=== PATIENT | male | born 1945 | race Caucasian/White ===

== ENCOUNTER 2020-12-24 12:50 | Emergency (ER) | payer MEDICARE, SELFPAY ==
[2020-12-24 12:54] VITALS: BP 140/104; PULSE 107; RESP 20; TEMP 36.3; O2SAT 97; BMI 24.1
--- NOTE | 2020-12-24 13:26 | ED_ITS ---
HPI - Skin/Abscess/Foreign Bdy General Chief complaint: Skin/Abscess/Foreign Body Stated complaint: rash Time Seen by Provider: 12/24/20 13:12 Source: patient Mode of arrival: ambulatory Limitations: no limitations History of Present Illness HPI narrative: treated x 3 after tele health with permethrin though and him share a bed and she has no symptoms, the patient may have had new laundry detergent complaint: rash Onset (ago): week(s) (3) Location: generalized Severity: moderate Quality: pruritic Pain Consistency: constant Relieving factors: none Exacerbating factors: none Context: none Associated symptoms: denies other symptoms Treatments prior to arrival: other (permethrin no relief) Related Data Home Medications Medication Instructions Recorded Confirmed atorvastatin 1 tab PO DAILY 12/24/20 12/24/20 finasteride 1 tab PO DAILY 12/24/20 12/24/20 permethrin appl TOPICAL 2XW 12/24/20 Previous Rx's Medication Instructions Recorded prednisone 10 mg PO PER PKG DIR #48 ea 12/24/20 Allergies Allergy/AdvReac Type Severity Reaction Status Date / Time carrot Allergy Swelling Verified 12/24/20 13:00 Penicillins Allergy Unknown Verified 12/24/20 13:00 Review of Systems Review of Systems: Constitutional : No Weight loss, No Fever, No Chills, No Fatigue, No Malaise ENT/Mouth : No sore throat, No Rhinorrhea Eyes: No Eye Pain, No Swelling, No Redness Cardiovascular : No Chest Pain, No SOB, No Dyspnea on Exertion Respiratory : No Cough, No Sputum, No Wheezing Gastrointestinal : No Nausea, No Vomiting, No Diarrhea, No Constipation, No abdominal Pain, No Hematochezia, No Melena Genitourinary : No Dysuria, No Urinary Frequency, No Hematuria, Musculoskeletal : No joint pain, No Myalgias, No Joint Swelling Skin : No Skin Lesions, pos rash Neuro : No Weakness, No Numbness, No Dizziness, No Headache All other systems reviewed and are negative [facility] Past Medical History Attestation statement: The following information was validated with the patient. Medical History Hypercholesteremia Social History Social History (Updated 12/24/20 @ 14:42 by Narda Mayberry DO) Smoking Status: Never smoker Advance Directives: No Advance Directives Information Provided: No Physical Exam Vital Signs: Vital Signs: Last Vital Signs Temp 97.4 F 12/24/20 12:54 Pulse 107 H 12/24/20 12:54 Resp 20 12/24/20 12:54 BP 140/104 H 12/24/20 12:54 Pulse Ox 97 12/24/20 12:54 Body Mass Index 24.1 Appearance: Alert. Oriented X3. No acute distress. Eyes: Pupils equal, round and reactive to light. ENT: Pharynx normal. Neck: Normal inspection. Neck supple. CVS: Normal heart rate and rhythm. Pulses normal. Respiratory: No respiratory distress. Breath sounds normal. Abdomen: Soft and nontender. Skin: Skin warm and dry. Normal skin color. Normal skin turgor. Extremities: No lower extremity edema. No calf ttp diffuse red excoriated lesions no vesicles no signs of infection, seems itching in nature Neuro: Oriented X 3. No motor deficit. No sensory deficit. MDM - Skin/Abscess/Foreign Bdy MDM Narrative Medical decision making narrative: 75 yo male with no DM here with itching rash that appears like dermatitis in nature possible exposure to detergent, basic labs and infl markers ordered, will start on prednisone taper Lab Data Result diagrams: 12/24/20 14:01 12/24/20 14:00 Labs: Lab Results 12/24/20 12/24/20 Range/Units 14:00 14:01 WBC 9.5 (4.8-10.8) X10*3/uL RBC 5.28 (4.60-5.80) X10*6/uL Hgb 15.3 (14.0-18.0) g/dl Hct 46.6 (42-52) % MCV 88.3 (80-98) fL MCH 29.0 (27.0-33.0) pg MCHC 32.8 (31.0-36.0) g/dl RDW 13.2 (11.0-16.0) % Plt Count 230 (160-400) X10*3/uL MPV 10.5 (9.4-12.4) fL Immature Gran % (Auto) 0.3 (0.0-0.4) % Neut % (Auto) 75.9 H (45-73) % Lymph % (Auto) 10.9 L (20-40) % Stephens % (Auto) 6.7 (2-11) % Eos % (Auto) 5.6 H (0-4) % Baso % (Auto) 0.6 (0-2) % Lymph # (Auto) 1.0 L (1.2-4.9) X10*3/uL Stephens # (Auto) 0.6 (0.1-1.2) X10*3/uL Eos # (Auto) 0.5 H (0.0-0.4) X10*3/uL Baso # (Auto) 0.1 (0.0-0.2) X10*3/uL Abs Immat Gran (auto) 0.03 (0.00-0.03) X10*3/uL Absolute Neuts (auto) 7.2 (2.0-8.3) X10*3/uL Absolute Nucleated RBC 0.000 (0.0-0.012) X10*3/uL Nucleated RBC % (auto) 0.0 (0.0-0.2) /100WBC Sodium 142 (135-145) mmol/L Potassium 4.6 (3.3-5.1) mmol/l Chloride 110 H (96-108) mmol/L Carbon Dioxide 23 (22-29) mmol/L Anion Gap 14 (12-20) BUN 17 H (9-16) mg/dL Creatinine 1.31 (0.5-1.4) mg/dL Estim Creat Clear Calc 54.3 Estimated GFR 53 Random Glucose 107 (60-115) mg/dL Calcium 8.7 (8.4-10.2) mg/dL Total Bilirubin 0.8 (0.0-1.0) mg/dL Direct Bilirubin 0.3 (0.0-0.5) mg/dL AST 15 (5-37) U/L ALT 18 (0-40) U/L Alkaline Phosphatase 69 (39-117) U/L C-Reactive Protein 0.46 (< or = 0.50) mg/dL Total Protein 6.6 (6.5-8.0) g/dL Albumin 3.7 (3.5-5.0) g/dL Discharge Plan Discharge Clinical Impression: Contact dermatitis Qualifiers: Contact dermatitis type: unspecified Contact dermatitis trigger: unspecified trigger Qualified Code(s): L25.9 - Unspecified contact dermatitis, unspecified cause Patient Disposition: Home, Self-Care Instructions: Dermatitis (ED) Additional Instructions: return to ED for any worsening symptoms or concerns IF THIS COINCIDES WITH YOUR DETERGENT PLEASE STOP USING Prescriptions: New prednisone 10 mg tablets,dose pack 10 mg PO PER PKG DIR Qty: 48 RF: 0 No Action atorvastatin 20 mg tablet 1 tab PO DAILY RF: 0 permethrin 5 % cream topical 2XW RF: 0 finasteride 5 mg tablet 1 tab PO DAILY RF: 0
[2020-12-24 14:04] LABS: MANUAL DIFF FLAG NO
[2020-12-24 14:09] LABS: Basophils Absolute Auto 0.1 X10*3/uL (0.0-0.2); Basophils Percent Auto 0.6 % (0-2); Eosinophils Absolute Auto 0.5 X10*3/uL (0.0-0.4); Eosinophils Percent Auto 5.6 % (0-4); Hematocrit 46.6 % (42-52); Hemoglobin 15.3 g/dl (14.0-18.0); Imm Gran Abs Auto 0.03 X10*3/uL (0.00-0.03); Imm Gran Pct Auto 0.3 % (0.0-0.4); Lymphocytes Percent Auto 10.9 % (20-40); Mean Corpuscular HGB Conc 32.8 g/dl (31.0-36.0); Mean Corpuscular Volume 88.3 fL (80-98); Mean Platelet Volume 10.5 fL (9.4-12.4); Monocytes Absolute Auto 0.6 X10*3/uL (0.1-1.2); Monocytes Percent Auto 6.7 % (2-11); Neutrophils Absolute Auto 7.2 X10*3/uL (2.0-8.3); Neutrophils Percent Auto 75.9 % (45-73); Platelet Count 230 X10*3/uL (160-400); Red Blood Count 5.28 X10*6/uL (4.60-5.80); Red Cell Distribution Width 13.2 % (11.0-16.0); White Blood Count 9.5 X10*3/uL (4.8-10.8)
[2020-12-24 14:32] LABS: Alanine Aminotransferase 18 U/L (0-40); Albumin Level 3.7 g/dL (3.5-5.0); Alkaline Phosphatase 69 U/L (39-117); Anion Gap 14 (12-20); Aspartate Amino Transferase 15 U/L (5-37); Bilirubin Direct 0.3 mg/dL (0.0-0.5); Bilirubin Total 0.8 mg/dL (0.0-1.0); Blood Urea Nitrogen 17 mg/dL (9-16); C Reactive Protein 0.46 mg/dL (< or = 0.50); Calcium 8.7 mg/dL (8.4-10.2); Carbon Dioxide 23 mmol/L (22-29); Chloride 110 mmol/L (96-108); Creatinine Clr Calc Pharmacy 54.3; Estimated Glomerular Filt Rate 53; Glucose Random 107 mg/dL (60-115); Potassium 4.6 mmol/l (3.3-5.1); Sodium 142 mmol/L (135-145); Total Protein 6.6 g/dL (6.5-8.0)
--- NOTE | 2020-12-24 14:49 | PC.NURSE ---
SITTING ON STRETCHER, AWAITING LAB RESULTS. NO C/O
[2020-12-24 15:17] LABS: Erythrocyte Sedimentation Rate 6 MM/HR (0-15)
== END 2020-12-24 15:03 | disposition home or self-care (01) ==
PROVIDERS: Emergency Provider Emergency Medicine; PCP Internal Medicine
DX: L25.9 Unspecified contact dermatitis, unspecified cause (principal)
CPT/HCPCS: 36415; 80048; 80076; 85025; 85652; 86140; 99283

== ENCOUNTER 2021-06-22 10:18 | Outpatient (REF) | payer MEDICARE, SELFPAY ==
[2021-06-22 10:21] LABS: MANUAL DIFF FLAG NO
[2021-06-22 10:45] LABS: Basophils Absolute Auto 0.1 X10*3/uL (0.0-0.2); Basophils Percent Auto 0.8 % (0-2); Eosinophils Absolute Auto 0.5 X10*3/uL (0.0-0.4); Eosinophils Percent Auto 7.6 % (0-4); Hematocrit 46.9 % (42-52); Hemoglobin 15.2 g/dl (14.0-18.0); Imm Gran Abs Auto 0.01 X10*3/uL (0.00-0.03); Imm Gran Pct Auto 0.2 % (0.0-0.4); Lymphocytes Absolute Auto 1.9 X10*3/uL (1.2-4.9); Lymphocytes Percent Auto 29.9 % (20-40); Mean Corpuscular HGB Conc 32.4 g/dl (31.0-36.0); Mean Corpuscular Hemoglobin 28.9 pg (27.0-33.0); Mean Corpuscular Volume 89.2 fL (80-98); Mean Platelet Volume 11.4 fL (9.4-12.4); Monocytes Absolute Auto 0.6 X10*3/uL (0.1-1.2); Monocytes Percent Auto 8.9 % (2-11); Neutrophils Absolute Auto 3.3 X10*3/uL (2.0-8.3); Neutrophils Percent Auto 52.6 % (45-73); Platelet Count 200 X10*3/uL (160-400); Red Blood Count 5.26 X10*6/uL (4.60-5.80); Red Cell Distribution Width 13.5 % (11.0-16.0); White Blood Count 6.3 X10*3/uL (4.8-10.8)
[2021-06-22 11:08] LABS: Alanine Aminotransferase 17 U/L (0-40); Albumin Level 4.1 g/dL (3.5-5.0); Alkaline Phosphatase 51 U/L (39-117); Anion Gap 11 (12-20); Aspartate Amino Transferase 18 U/L (5-37); Bilirubin Total 0.7 mg/dL (0.0-1.0); Blood Urea Nitrogen 18 mg/dL (9-16); Calcium 9.3 mg/dL (8.4-10.2); Carbon Dioxide 26 mmol/L (22-29); Chloride 109 mmol/L (96-108); Cholesterol 176 mg/dL; Estimated Glomerular Filt Rate 53; Glucose Fasting 99 mg/dL (60-99); HDL Cholesterol 56 mg/dL; LDL Cholesterol Calculated 105 mg/dl; Sodium 141 mmol/L (135-145); Triglycerides 77 mg/dL
[2021-06-22 11:22] LABS: Reflex LDLD? No
== END 2021-06-22 10:19 | disposition home or self-care (01) ==
LOC: HO.LNP 10:18
PROVIDERS: Visit Provider Internal Medicine
DX: Z00.00 Encounter for general adult medical examination without abnormal findings (principal); Z12.5 Encounter for screening for malignant neoplasm of prostate; E78.00 Pure hypercholesterolemia, unspecified; N40.0 Benign prostatic hyperplasia without lower urinary tract symptoms
CPT/HCPCS: 80053; 80061; 84153; 85025

== ENCOUNTER 2021-06-29 15:37 | Outpatient (REF) | payer MEDICARE, SELFPAY ==
[2021-06-29 15:56] LABS: Glucose Urine UA NEG (NEG); Leukocyte Esterase Urine NEG (NEG); Nitrite Urine NEG (NEG); Specific Gravity - Urine 1.025 (1.005-1.025); Urine Blood NEG (NEG); Urine Ketones NEG (NEG); Urine Protein NEG (NEG-TRACE)
[2021-06-29 15:57] LABS: Appearance Urine CLEAR; Color Urine YELLOW
== END 2021-06-29 15:38 | disposition home or self-care (01) ==
LOC: HO.LNP 15:37
PROVIDERS: Visit Provider Internal Medicine
DX: Z00.00 Encounter for general adult medical examination without abnormal findings (principal)
CPT/HCPCS: 81003

== ENCOUNTER 2021-12-30 10:39 | Outpatient (REF) | payer MEDICARE, SELFPAY ==
[2021-12-30 11:16] LABS: Alanine Aminotransferase 15 U/L (0-40); Albumin Level 3.9 g/dL (3.5-5.0); Alkaline Phosphatase 49 U/L (39-117); Aspartate Amino Transferase 18 U/L (5-37); Bilirubin Direct 0.3 mg/dL (0.0-0.5); Bilirubin Total 0.8 mg/dL (0.0-1.0); Cholesterol 168 mg/dL; HDL Cholesterol 54 mg/dL; LDL Cholesterol Calculated 101 mg/dl; Total Protein 6.8 g/dL (6.5-8.0); Triglycerides 65 mg/dL
[2021-12-30 12:08] LABS: Reflex LDLD? No
== END 2021-12-30 10:40 | disposition home or self-care (01) ==
LOC: HO.LNP 10:39
PROVIDERS: PCP Internal Medicine; Visit Provider Internal Medicine
DX: E78.00 Pure hypercholesterolemia, unspecified (principal)
CPT/HCPCS: 80061; 80076

== ENCOUNTER 2022-07-01 11:06 | Outpatient (REF) | payer MEDICARE, SELFPAY ==
[2022-07-01 11:09] LABS: MANUAL DIFF FLAG NO
[2022-07-01 11:28] LABS: Basophils Percent Auto 0.8 % (0-2); Eosinophils Absolute Auto 0.3 X10*3/uL (0.0-0.4); Eosinophils Percent Auto 5.2 % (0-4); Hematocrit 44.6 % (42.0-52.0); Hemoglobin 14.7 g/dl (14.0-18.0); Imm Gran Abs Auto 0.01 X10*3/uL (0.00-0.03); Imm Gran Pct Auto 0.2 % (0.0-0.4); Lymphocytes Percent Auto 38.3 % (20-40); Mean Platelet Volume 10.8 fL (9.4-12.4); Monocytes Absolute Auto 0.6 X10*3/uL (0.1-1.2); Monocytes Percent Auto 10.7 % (2-11); Neutrophils Absolute Auto 2.3 x10*3/uL (2.0-8.3); Neutrophils Percent Auto 44.8 % (45-73); Platelet Count 188 X10*3/uL (160-400); Red Blood Count 5.07 X10*6/uL (4.60-5.80); Red Cell Distribution Width 13.8 % (11.0-16.0); White Blood Count 5.2 X10*3/uL (4.8-10.8)
[2022-07-01 11:36] LABS: Appearance Urine CLEAR; Color Urine YELLOW; Glucose Urine UA NEG (NEG); Leukocyte Esterase Urine NEG (NEG); Nitrite Urine NEG (NEG); PH 6.5 (5.0-8.0); Specific Gravity - Urine 1.015 (1.005-1.025); Urine Blood NEG (NEG); Urine Ketones NEG (NEG); Urine Protein NEG (NEG-TRACE)
[2022-07-01 11:40] LABS: Alanine Aminotransferase 14 U/L (0-40); Alkaline Phosphatase 48 U/L (39-117); Anion Gap 13 (12-20); Aspartate Amino Transferase 16 U/L (5-37); Bilirubin Total 0.6 mg/dL (0.0-1.0); Blood Urea Nitrogen 17 mg/dL (9-16); Calcium 8.5 mg/dL (8.4-10.2); Carbon Dioxide 22 mmol/L (22-29); Chloride 110 mmol/L (96-108); Cholesterol 166 mg/dL; Estimated Glomerular Filt Rate 55; Glucose Fasting 99 mg/dL (60-99); HDL Cholesterol 56 mg/dL; LDL Cholesterol Calculated 98 mg/dl; Potassium 4.6 mmol/L (3.3-5.1); Sodium 140 mmol/L (135-145); Total Protein 6.8 g/dL (6.5-8.0); Triglycerides 60 mg/dL
[2022-07-01 12:01] LABS: PSA,Total (Free>4and<10) 2.01 ng/mL (0.00-4.00)
[2022-07-01 12:07] LABS: RBC Urine 0-2 /HPF (0); WBC Urine 0-2 /HPF (0-4)
== END 2022-07-01 11:07 | disposition home or self-care (01) ==
LOC: HO.LNP 11:06
PROVIDERS: Visit Provider Internal Medicine
DX: Z00.00 Encounter for general adult medical examination without abnormal findings (principal); Z12.5 Encounter for screening for malignant neoplasm of prostate; E78.00 Pure hypercholesterolemia, unspecified; N40.0 Benign prostatic hyperplasia without lower urinary tract symptoms
CPT/HCPCS: 80053; 80061; 81001; 84153; 85025

== ENCOUNTER → 2022-09-19 09:18 | Outpatient (REF) | payer MEDICARE, SELFPAY ==
--- NOTE | 2022-09-19 09:27 | CA_ITS ---
Acquisition Time: 2022-09-19 10:22:12 Total Exercise Time: 00:06:20 Test Indications: CARDIAC MURMUR Medications: ATORVASTATIN FINSASTERIDE Protocol: ALEJANDRA Max HR: 139 BPM 95% of Pred: 145 BPM Max BP: 172/090 mmHG Max Work Load: 7.5 METS Exercise stress test with exercise 6 min 20 sec of Alejandra protocol, achieving 95% MPHR, without anginal symptoms, without arrythmia, with normotensive response to exercise, without EKG changes meeting criteria for ischemia. Test reviewed with Dr Mendez. Referred By: Jenaro Brown Overread By: GAB SEBASTIAN
--- NOTE | 2022-09-19 09:30 | CA_ITS ---
Transthoracic Echocardiogram Patient (Last, First, Middle): Leo Frank W Gender: Male Date of : 1945 Age: 76 Procedure Date: 09/19/2022 Procedure Type: Transthoracic Echocardiogram Location: OP Height: 180.34 cm Weight: 81.65 kg BSA: 2.02 m2 Heart Rate: bpm BP: 130 / 80 mmHg [employer] Back Tender: CRUZ Referring MD: Jenaro Brown MD Systems Support Officer: Dejuan Mendez MD Symptoms: HEART MURMUR Study Quality: Adequate ECG Rhythm: Sinus Conclusions: - 1. Normal LV systolic function with impaired relaxation filling pattern 2. Aortic valve not well visualized with [id number] aortic regurgitation 3. Moderately dilated ascending aorta at 4.5 cm 4. Normal RV systolic pressure 5. No gross pericardial effusion Findings Left Ventricle Normal left ventricular size, thickness, and systolic function. The visually estimated ejection fraction is between 60-65%. Spectral Doppler is indicative of an impaired relaxation filling pattern. E/E prime ratio is between 8 and 15 consistent with indeterminate filling pressures. Right Ventricle Normal right ventricular cavity size and systolic function. Atria The left atrium is normal in size. There is no evidence of interatrial shunt. The right atrium is normal in size. Aortic Valve The aortic valve was not well visualized. There is moderate calcification of the aortic valve. There is no aortic valve stenosis. There is mild to moderate aortic valve regurgitation. Mitral Valve There is mild anterior and posterior mitral leaflet thickening. There is mild mitral valve regurgitation. There is no mitral valve stenosis. Pulmonic Valve The pulmonic valve was not well visualized. Tricuspid Valve Likely normal tricuspid valve structure and function. There is trace tricuspid valve regurgitation. The right ventricular systolic pressure is normal. The right ventricular systolic pressure is 24 mmHg. Normal right atrial pressure. There is no evidence of pulmonary hypertension. Great Vessels The pulmonary artery was not well visualized. There is moderate dilatation of the ascending aorta measuring 4.50 cm. Venous The inferior vena cava is normal in size and collapses greater than 50% with inspiration. Pericardium/Pleural There is no evidence of pericardial effusion. Prior Study Comparison No prior study available for comparison. Measurements 2D Linear Measurements IVSd: 1.10 0.6-0.9/0.6-1.0 cm LVIDd: 5.19 3.9-5.3/4.2-5.9 cm LVIDd Index: 2.57 2.4-3.2/2.2-3.1 cm/m2 LVIDs: 3.22 2.0-3.6 cm LVPWd: 0.93 0.7-1.1 cm LA Diam: 2.90 2.7-3.8/3.0-4.0 cm LAIDs Index: 1.44 1.5-2.3 cm/m2 LV Mass: 246.68 67-162/88-224 g LV Mass Index: 122.12 43-95/49-115 g/m2 LVOT Diam: 2.10 3.0+(-)1.3 cm 2D Systolic Function EF 4C: 59.80 >55% EF 2C: 60.20 >55% EF BiP: 60.00 >55% Mitral Valve MV Pk E: 0.85 MV PK A: 0.85 MV Decel Time: 278.00 E/A: 1.00 E'Lateral: 7.63 E'Medial: 5.57 E/E' Med: 15.30 E/E' Lat: 11.20 PHT: 81.00 MVA PHT: 2.72 Decel [place]: 3.07 Aortic Valve AoV Pk Blu: 1.51 AoV Mn Blu: 1.09 AoV VTI: 0.41 AoV Pk Grad: 9.00 Aov Mn Grad: 5.00 APURVA Cont.VTI: 1.99 AI Pk Blu: 4.47 AI [place]: 1.86 LVOT LVOT Pk Blu: 1.00 LVOT Mn Blu: 0.68 LVOT VTI: 0.24 LVOT Pk Grad: 4.00 LVOT Mn Grad: 2.00 LVOT Diam: 2.10 LVOT Area: 3.46 Diastolic Function MV Pk E: 0.85 MV Pk A: 0.85 E/A: 1.00 E'Medial: 5.57 E/E' Med: 15.30 E' Laterial: 7.63 E/E' Lat: 11.20 Right Ventricle TAPSE (mm): 32.10 TVS' Blu: 13.70 Tricuspid Valve TR Pk Blu: 2.29 TR Pk Grad: 21.00 RA Press: 3.00 RVSP: 24.00 Great Vessels Aorta Sinus of Valsalva: 3.95 2.0-3.[address] Ridge: 3.40 1.7-3.4 cm Ao Asc: 4.50 2.1-3.4 cm Updated in Other Vendor System with Status of Final Dejuan Mendez MD electronically signed on 09/20/2022 2:37:42 PM with status of Final
== END ==
LOC: HO.CARD 09:18
PROVIDERS: PCP Internal Medicine; Visit Provider Internal Medicine
DX: R01.1 Cardiac murmur, unspecified (principal)
CPT/HCPCS: 93017; 93306

== ENCOUNTER 2023-08-08 10:24 | Outpatient (REF) | payer MEDICARE, SELFPAY ==
[2023-08-08 10:27] LABS: MANUAL DIFF FLAG NO
[2023-08-08 10:34] LABS: Basophils Absolute Auto 0.1 X10*3/uL (0.0-0.2); Eosinophils Absolute Auto 0.3 X10*3/uL (0.0-0.4); Eosinophils Percent Auto 6.3 % (0-4); Hematocrit 44.7 % (42.0-52.0); Imm Gran Abs Auto 0.01 X10*3/uL (0.00-0.03); Imm Gran Pct Auto 0.2 % (0.0-0.4); Lymphocytes Absolute Auto 1.7 X10*3/uL (1.2-4.9); Lymphocytes Percent Auto 32.4 % (20-40); Mean Corpuscular HGB Conc 33.6 g/dl (31.0-36.0); Mean Corpuscular Hemoglobin 29.6 pg (27.0-33.0); Mean Corpuscular Volume 88.3 fL (80.0-98.0); Mean Platelet Volume 11.3 fL (9.4-12.4); Monocytes Absolute Auto 0.4 X10*3/uL (0.1-1.2); Monocytes Percent Auto 8.4 % (2-11); Neutrophils Absolute Auto 2.7 x10*3/uL (2.0-8.3); Neutrophils Percent Auto 51.7 % (45-73); Platelet Count 197 X10*3/uL (160-400); Red Blood Count 5.06 X10*6/uL (4.60-5.80); Red Cell Distribution Width 13.3 % (11.0-16.0); White Blood Count 5.2 X10*3/uL (4.8-10.8)
[2023-08-08 10:36] LABS: Appearance Urine Clear; Color Urine Yellow; Glucose Urine UA Negative (Negative); Leukocyte Esterase Urine Negative (Negative); Nitrite Urine Negative (Negative); Specific Gravity - Urine 1.015 (1.005-1.025); Urine Blood Negative (Negative); Urine Ketones Negative (Negative); Urine Protein Negative (Neg-Trace)
[2023-08-08 10:39] LABS: Bacteria Urine None Seen (None Seen); Hyaline Casts Urine 0-2 /LPF (0-2); RBC Urine 0-2 /HPF (0-2); Squamous Epithelial Cell Urine 0-2 /HPF (0-2); WBC Urine 0-5 /HPF (0-5)
[2023-08-08 10:53] LABS: Alanine Aminotransferase 15 U/L (0-40); Alkaline Phosphatase 52 U/L (39-117); Anion Gap 12 (12-20); Aspartate Amino Transferase 17 U/L (5-37); Bilirubin Total 0.9 mg/dL (0.0-1.0); Blood Urea Nitrogen 14 mg/dL (9-16); Calcium 9.1 mg/dL (8.4-10.2); Carbon Dioxide 21 mmol/L (22-29); Chloride 111 mmol/L (96-108); Cholesterol 144 mg/dL (<200); Estimated Glomerular Filt Rate > 60; Glucose Fasting 99 mg/dL (60-99); HDL Cholesterol 53 mg/dL (>40); LDL Cholesterol Calculated 75 mg/dL (<100); Potassium 4.3 mmol/L (3.3-5.1); Sodium 140 mmol/L (135-145); Triglycerides 80 mg/dL (<150)
[2023-08-08 11:09] LABS: PSA,Total (Free>4and<10) 2.02 ng/mL (0.00-4.00)
== END 2023-08-08 10:25 | disposition home or self-care (01) ==
LOC: HO.LNP 10:24
PROVIDERS: Visit Provider Internal Medicine
DX: Z00.00 Encounter for general adult medical examination without abnormal findings (principal); Z12.5 Encounter for screening for malignant neoplasm of prostate; E78.00 Pure hypercholesterolemia, unspecified; N40.0 Benign prostatic hyperplasia without lower urinary tract symptoms
CPT/HCPCS: 80053; 80061; 81001; 84153; 85025

== ENCOUNTER 2024-02-05 10:54 | Outpatient (REF) | payer MEDICARE, SELFPAY ==
[2024-02-05 13:07] LABS: Alanine Aminotransferase 17 U/L (0-40); Alkaline Phosphatase 55 U/L (39-117); Aspartate Amino Transferase 19 U/L (5-37); Bilirubin Direct 0.2 mg/dL (0.0-0.5); Bilirubin Total 0.5 mg/dL (0.0-1.0); Cholesterol 177 mg/dL (<200); HDL Cholesterol 61 mg/dL (>40); LDL Cholesterol Calculated 104 mg/dL (<100); Total Protein 7.1 g/dL (6.5-8.0); Triglycerides 60 mg/dL (<150)
== END 2024-02-05 10:55 | disposition home or self-care (01) ==
LOC: HO.LNP 10:54
PROVIDERS: Visit Provider Internal Medicine
DX: E78.00 Pure hypercholesterolemia, unspecified (principal)
CPT/HCPCS: 80061; 80076

== ENCOUNTER 2024-08-09 10:46 | Outpatient (REF) | payer MEDICARE, SELFPAY ==
[2024-08-09 10:49] LABS: MANUAL DIFF FLAG NO
[2024-08-09 11:13] LABS: Appearance Urine Clear; Color Urine Yellow; Glucose Urine UA Negative (Negative); Leukocyte Esterase Urine Negative (Negative); Nitrite Urine Negative (Negative); Specific Gravity - Urine 1.025 (1.005-1.025); Urine Blood Negative (Negative); Urine Ketones Trace mg/dL (Negative); Urine Protein Trace mg/dL (Neg-Trace)
[2024-08-09 11:21] LABS: Bacteria Urine None Seen (None Seen); Hyaline Casts Urine 0-2 /LPF (0-2); RBC Urine 0-2 /HPF (0-2); Squamous Epithelial Cell Urine 0-2 /HPF (0-2); WBC Urine 0-5 /HPF (0-5)
[2024-08-09 11:34] LABS: Basophils Absolute Auto 0.1 X10*3/uL (0.0-0.2); Eosinophils Absolute Auto 0.3 X10*3/uL (0.0-0.4); Eosinophils Percent Auto 5.4 % (0-4); Hematocrit 45.1 % (42.0-52.0); Hemoglobin 14.9 g/dl (14.0-18.0); Imm Gran Abs Auto 0.01 X10*3/uL (0.00-0.03); Imm Gran Pct Auto 0.2 % (0.0-0.4); Lymphocytes Absolute Auto 2.2 X10*3/uL (1.2-4.9); Lymphocytes Percent Auto 37.5 % (20-40); Mean Corpuscular Hemoglobin 29.9 pg (27.0-33.0); Mean Corpuscular Volume 90.4 fL (80.0-98.0); Monocytes Absolute Auto 0.5 X10*3/uL (0.1-1.2); Monocytes Percent Auto 9.3 % (2-11); Neutrophils Absolute Auto 2.7 x10*3/uL (2.0-8.3); Neutrophils Percent Auto 46.6 % (45-73); Platelet Count 196 X10*3/uL (160-400); Red Blood Count 4.99 X10*6/uL (4.60-5.80); Red Cell Distribution Width 13.9 % (11.0-16.0); White Blood Count 5.8 X10*3/uL (4.8-10.8)
[2024-08-09 11:48] LABS: Alanine Aminotransferase 17 U/L (0-40); Albumin Level 4.1 g/dL (3.5-5.0); Alkaline Phosphatase 52 U/L (39-117); Anion Gap 12 (12-20); Aspartate Amino Transferase 20 U/L (5-37); Bilirubin Total 0.8 mg/dL (0.0-1.0); Blood Urea Nitrogen 20 mg/dL (9-16); Calcium 9.3 mg/dL (8.4-10.2); Carbon Dioxide 23 mmol/L (22-29); Chloride 110 mmol/L (96-108); Cholesterol 181 mg/dL (<200); Estimated Glomerular Filt Rate 46; Glucose Fasting 94 mg/dL (60-99); HDL Cholesterol 66 mg/dL (>40); LDL Cholesterol Calculated 100 mg/dL (<100); Potassium 4.3 mmol/L (3.3-5.1); Sodium 141 mmol/L (135-145); Total Protein 7.2 g/dL (6.5-8.0); Triglycerides 76 mg/dL (<150)
[2024-08-09 11:51] LABS: PSA,Total (Free>4and<10) 3.17 ng/mL (0.00-4.00)
== END 2024-08-09 10:47 | disposition home or self-care (01) ==
LOC: HO.LNP 10:46
PROVIDERS: Visit Provider Internal Medicine
DX: Z00.00 Encounter for general adult medical examination without abnormal findings (principal); E78.00 Pure hypercholesterolemia, unspecified; Z12.5 Encounter for screening for malignant neoplasm of prostate; N40.0 Benign prostatic hyperplasia without lower urinary tract symptoms
CPT/HCPCS: 80053; 80061; 81001; 84153; 85025

== ENCOUNTER → 2024-09-12 13:44 | Outpatient (REF) | payer MEDICARE, SELFPAY ==
--- NOTE | 2024-09-12 13:52 | CA_ITS ---
Transthoracic Echocardiogram Patient (Last, First, Middle): Leo Frank W Gender: Male Date of : 1945 Age: 78 Procedure Date: 09/12/2024 Procedure Type: Transthoracic Echocardiogram Location: OP Height: 180.34 cm Weight: 81.65 kg BSA: 2.02 m2 Heart Rate: 54 bpm BP: 120 / 76 mmHg Medical Equipment Sales: CRUZ Referring MD: Jenaro Brown MD Symptoms: SOB Study Quality: Adequate ECG Rhythm: Bradycardia Conclusions: - The left ventricular systolic function is low normal. The visually estimated ejection fraction is between 55-60%. - There is mild aortic valve regurgitation. - There is moderate dilatation of the ascending aorta measuring 4.50 cm. Findings Left Ventricle Normal left ventricular cavity size. The left ventricular systolic function is low normal. The visually estimated ejection fraction is between 55-60%. There is no evidence of regional wall motion abnormalities. Evidence suggests grade I (mild) diastolic dysfunction. There is moderate septal asymmetric hypertrophy. Right Ventricle Normal right ventricular cavity size and systolic function. Atria Both atria are normal in size. Aortic Valve There is a normal trileaflet aortic valve. There is mild calcification of the aortic valve. There is no aortic valve stenosis. There is mild aortic valve regurgitation. Mitral Valve The mitral valve appears normal. There is trace mitral valve regurgitation. There is no mitral valve stenosis. Pulmonic Valve The pulmonic valve is likely normal. Tricuspid Valve There is mild tricuspid valve regurgitation. There is no evidence of pulmonary hypertension. Great Vessels The aortic arch is normal in size. There is moderate dilatation of the ascending aorta measuring 4.50 cm. Venous The inferior vena cava is mildly dilated and collapses greater than 50% with inspiration. Pericardium/Pleural There is no evidence of pericardial effusion. Prior Study Comparison No significant change compared to prior study dated: 09/19/2022. Measurements 2D Linear Measurements IVSd: 1.34 0.6-0.9/0.6-1.0 cm LVIDd: 4.17 3.9-5.3/4.2-5.9 cm LVIDd Index: 2.06 2.4-3.2/2.2-3.1 cm/m2 LVIDs: 2.82 2.0-3.6 cm LVPWd: 1.01 0.7-1.1 cm LA Diam: 2.80 2.7-3.8/3.0-4.0 cm LAIDs Index: 1.39 1.5-2.3 cm/m2 LV Mass: 212.84 67-162/88-224 g LV Mass Index: 105.37 43-95/49-115 g/m2 LVOT Diam: 2.10 3.0+(-)1.3 cm 2D Systolic Function EF 4C: 56.60 >55% EF 2C: 64.00 >55% EF BiP: 60.50 >55% Mitral Valve MV Pk E: 0.70 MV PK A: 0.88 MV Decel Time: 262.00 E/A: 0.80 E'Lateral: 7.40 E'Medial: 4.68 E/E' Med: 14.90 E/E' Lat: 9.40 PHT: 77.00 MVA PHT: 2.86 Decel [place]: 2.66 Aortic Valve AoV Pk Blu: 2.24 AoV Mn Blu: 1.56 AoV VTI: 0.51 AoV Pk Grad: 20.00 Aov Mn Grad: 11.00 APURVA Cont.VTI: 1.91 AI Pk Blu: 4.86 AI [place]: 1.98 LVOT LVOT Pk Blu: 1.17 LVOT Mn Blu: 0.84 LVOT VTI: 0.28 LVOT Pk Grad: 5.00 LVOT Mn Grad: 3.00 LVOT Diam: 2.10 LVOT Area: 3.46 Diastolic Function MV Pk E: 0.70 MV Pk A: 0.88 E/A: 0.80 E'Medial: 4.68 E/E' Med: 14.90 E' Laterial: 7.40 E/E' Lat: 9.40 Right Ventricle TAPSE (mm): 25.60 TVS' Blu: 11.10 Tricuspid Valve TR Pk Blu: 2.14 TR Pk Grad: 18.00 RA Press: 8.00 RVSP: 26.00 Great Vessels Aorta Sinus of Valsalva: 3.88 2.0-3.[address] Ridge: 2.96 1.7-3.4 cm Ao Asc: 4.50 2.1-3.4 cm Ao Arch: 3.30 Updated in Other Vendor System with Status of Final Lavon Hurd MD electronically signed on 09/13/2024 5:40:52 PM with status of Final
== END ==
LOC: HO.CARD 13:44
PROVIDERS: Visit Provider Internal Medicine
DX: I77.810 Thoracic aortic ectasia (principal)
CPT/HCPCS: 93306

== ENCOUNTER → 2024-09-12 13:52 | Outpatient (BNV) | payer MEDICARE, SELFPAY | PROVIDERS: Visit Provider Internal Medicine | DX: I35.1 Nonrheumatic aortic (valve) insufficiency (principal); I35.8 Other nonrheumatic aortic valve disorders; I36.1 Nonrheumatic tricuspid (valve) insufficiency; I42.2 Other hypertrophic cardiomyopathy | CPT/HCPCS: 93306 ==

== ENCOUNTER 2024-10-18 07:36 | Outpatient (REF) | payer MEDICARE, SELFPAY ==
[2024-10-18 08:21] LABS: Blood Urea Nitrogen 19 mg/dL (9-16); Estimated Glomerular Filt Rate > 60
== END 2024-10-18 07:37 | disposition home or self-care (01) ==
LOC: HO.LAB 07:36
PROVIDERS: PCP Internal Medicine; Visit Provider Internal Medicine
DX: R79.89 Other specified abnormal findings of blood chemistry (principal)
CPT/HCPCS: 36415; 82565; 84520

== ENCOUNTER 2024-11-12 11:49 | Outpatient (REF) | payer MEDICARE, SELFPAY ==
--- OUTSIDE RECORDS SUMMARY | 2024-11-12 11:53 | XMS_ITS ---
Author Organization Jenaro Brown MD Address [address] [place] [phone] Care Team Providers Care Desulphuring Operator Name Role Phone Jenaro Brown Primary Care Provider ALLERGIES Allergen (clinical drug ingredient) Drug/Non Drug Allergy documented on EMR Reaction Allergy Type Onset Date Status Penicillin G Benzathine rash Drug Allergy Active REASON FOR VISIT 3 month MEDICATIONS Medication SIG (Take, Route, Frequency, Duration) Notes Start Date End Date Status Triamcinolone Acetonide 0.5 % 1 application to affected area Externally Twice a day Active Finasteride 5 MG take 1 tablet by tayla th every day Orally Once a day Active Atorvastatin Calcium 20 MG take 1 tablet by mouth every day Orally Once a day Active VITAL SIGNS BMI 26.03 kg/m2 11/12/2024 Blood pressure systolic 112 mm Hg 11/12/20 24 Blood pressure diastolic 60 mm Hg 024 Height 70.5 in 11/12/2024 Weight 184 lbs 11/12/2024 weight is up 3 poiunds since 08-16-24 Encounters Encounter Location Date Provider Diagnosis Jenaro Brown MD [address] [place] [phone] 11/12/2024 Jenaro Brown Ascending aorta dilatation I77.810 ; Nonrheumatic aortic valve insufficiency I35.1 ; Prostatism N40.0 and Elevated BUN R79.9 ASSESSMENTS Encounter Date Diagnosis Assessment Notes Treatment Notes Treatment Clinical Notes 11/12/2024 Ascending aorta dilatation (ICD-10 - I77.810) will continue to monitor 11/12/2024 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) needs to repeat echo in 2 years/ order printed and put in future folder 11/12/2024 Prostatism (ICD-10 - N40.0) discussed the rising psa/ need last notes from [facility] urology/ request will be sent, pending labs 11/12/2024 Elevated BUN (ICD-10 - R79.9) has gotten better with drinking more water, will continue to monitor PLAN OF TREATMENT Treatment Notes Assessment Notes Ascending aorta dilatation will continue to monitor Nonrheumatic aortic valve insufficiency needs to repeat echo in 2 years/ order printed and put in future folder Prostatism discussed the rising psa/ need last notes from [facility] urology/ request will be sent, pending labs Elevated BUN has gotten better wi th drinking more water, will continue to monitor Pending Test Test Name Order Date PSA,Total (Free>4and<10) 11/12/2024 Future Test Test Name Order Date ECHO 11/12/2026 Next Appt Details Provider Name:Jenaro middleton, 08/15/2025 07:00:00 AM, [address] [place] [address], [address], [place], [phone], Provider Name:Jenaro middleton, 08/22/2025 08:30:00 AM, [address] [place] [address], [address], [place], [place], [phone], Progress Notes * Examination Category Sub-Category Detail Notes General Examination GENERAL APPEARANCE: alert, w ell hydrated, in no distress HEART: 2/6 marlys and occasion al extrasystole SKIN: good turgor
--- OUTSIDE RECORDS SUMMARY | 2024-11-12 11:53 | XMS_ITS | Patient Health Record ---
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 Liver Panel Reviewed date:02/05/2024 04:23:51 PM Interpretation: Performing Lab:[facility], [address] [place] [phone] Notes/Report: Bilirubin Total 0.5 0.0-1.0 mg/dL Bilirubin Direct 0.2 0.0-0.5 mg/dL Aspartate Amino Transferase 19 5-37 U/L Alanine Aminotransferase 17 0-40 U/L Total Protein 7.1 6.5-8.0 g/dL Albumin Level 4.0 3.5-5.0 g/dL Alkaline Phosphatase 55 39-117 U/L Lipid Panel with Reflex Reviewed date:02/05/2024 04:24:21 PM Interpretation: Performing Lab:[facility], [address] [place] [phone] Notes/Report: Triglycerides 60 <150 mg/dL Desirable Triglyceride: less than 150 mg/dL Desirable Triglyceride: less than 150 mg/dL Borderline High Triglyceride 150-199 mg/dL Borderline High Triglyceride 150-199 mg/dL High Triglyceride: 200-499 mg/dL High Triglyceride: 200-499 mg/dL Very High Triglyceride: greater than or equal to Very High Triglyceride: greater than or equal to 5OO mg/dL 5OO mg/dL Cholesterol 177 <200 mg/dL Desirable Cholesterol: less than 200 mg/dL Desirable Cholesterol: less than 200 mg/dL Borderline High Cholesterol: 200-239 mg/dL Borderline High Cholesterol: 200-239 mg/dL High Cholesterol: greater than 239 mg/dL High Cholesterol: greater than 239 mg/dL LDL Cholesterol Calculated 104 <100 mg/dL Desirable LDL: less than 100 mg/dL Desirable LDL: less than 100 mg/dL Near Optimal/Above Optimal LDL: 110-129 mg/dL Near Optimal/Above Optimal LDL: 110-129 mg/dL Borderline High LDL: 130-159 mg/dL Borderline High LDL: 130-159 mg/dL High LDL: 160-189 mg/dL High LDL: 160-189 mg/dL Very High LDL: greater than or equal to Very High LDL: greater than or equal to 190 mg/dL 190 mg/dL HDL Cholesterol 61 >40 mg/dL Desirable HDL: greater than 40 mg/dL Desirable HDL: greater than 40 mg/dL Note: This HDL assay may give artificially Note: This HDL assay may give artificially low results in patients with liver disease. low results in patients with liver disease. Triglycerides 60 <150 mg/dL Desirable Triglyceride: less than 150 mg/dL Desirable Triglyceride: less than 150 mg/dL Borderline High Triglyceride 150-199 mg/dL Borderline High Triglyceride 150-199 mg/dL High Triglyceride: 200-499 mg/dL High Triglyceride: 200-499 mg/dL Very High Triglyceride: greater than or equal to Very High Triglyceride: greater than or equal to 5OO mg/dL 5OO mg/dL Cholesterol 177 <200 mg/dL Desirable Cholesterol: less than 200 mg/dL Desirable Cholesterol: less than 200 mg/dL Borderline High Cholesterol: 200-239 mg/dL Borderline High Cholesterol: 200-239 mg/dL High Cholesterol: greater than 239 mg/dL High Cholesterol: greater than 239 mg/dL LDL Cholesterol Calculated 104 <100 mg/dL Desirable LDL: less than 100 mg/dL Desirable LDL: less than 100 mg/dL Near Optimal/Above Optimal LDL: 110-129 mg/dL Near Optimal/Above Optimal LDL: 110-129 mg/dL Borderline High LDL: 130-159 mg/dL Borderline High LDL: 130-159 mg/dL High LDL: 160-189 mg/dL High LDL: 160-189 mg/dL Very High LDL: greater than or equal to Very High LDL: greater than or equal to 190 mg/dL 190 mg/dL HDL Cholesterol 61 >40 mg/dL Desirable HDL: greater than 40 mg/dL Desirable HDL: greater than 40 mg/dL Note: This HDL assay may give artificially Note: This HDL assay may give artificially low results in patients with liver disease. low results in patients with liver disease. Complete Blood Count Auto Di ff Reviewed date:08/09/2024 03:50:49 PM Interpretation: Performing Lab:[facility], [address] [place] [phone] Notes/Report: White Blood Count 5.8 4.8-10.8 X10*3/uL Red Blood Count 4.99 4.60-5.80 X10*6/uL Hemoglobin 14.9 14.0-18.0 g/dl Hematocrit 45.1 42.0-52.0 % Mean Corpuscular Volume 90.4 80.0-98.0 fL Mean Corpuscular Hemoglobin 29.9 27.0-33.0 pg Mean Corpuscular HGB Conc 33.0 31.0-36.0 g/dl Red Cell Distribution Width 13.9 11.0-16.0 % Platelet Count 196 160-400 X10*3/uL Mean Platelet Volume 11.0 9.4-12.4 fL Neutrophils Percent Auto 46.6 45-73 % Imm Gran Pct Auto 0.2 0.0-0.4 % Lymphocytes Percent Auto 37.5 20-40 % Monocytes Percent Auto 9.3 2-11 % Eosinophils Percent Auto 5.4 0-4 % Basophils Percent Auto 1.0 0-2 % NRBC Pct Auto 0.0 0.0-0.2 /100WBC Neutrophils Absolute Auto 2.7 2.0-8.3 x10*3/u L Imm Gran Abs Auto 0.01 0.00-0.03 X10*3/uL Lymphocytes Absolute Auto 2.2 1.2-4.9 X10*3/u L Monocytes Absolute Auto 0.5 0.1-1.2 X10*3/uL Eosinophils Absolute Auto 0.3 0.0-0.4 X10*3/u L Basophils Absolute Auto 0.1 0.0-0.2 X10*3/uL NRBC Abs Auto 0.000 0.0-0.012 X10*3/uL Comprehensive Gravity. Panel Fa st Reviewed date:08/11/2024 05:00:57 PM Interpretation: Performing Lab:[facility], [address] [place] [phone] Notes/Report: Sodium 141 135-145 mmol/L Potassium 4.3 3.3-5.1 mmol/L Chloride 110 96-108 mmol/L Carbon Dioxide 23 22-29 mmol/L Anion Gap 12 12-20 Blood Urea Nitrogen 20 9-16 mg/dL Creatinine 1.48 0.5-1.4 mg/dL Estimated Glomerular Filt Rate 46 NOTE: For -Beninese individuals, multiply the result by 1.210. Chronic Kidney Disease: Estimated GFR < 60 mL/min/1.73m2 Severe Kidney Disease: Estimated GFR < 15 mL/min/1.73m2 Glucose Fasting 94 60-99 mg/dL Calcium 9.3 8.4-10.2 mg/dL Bilirubin Total 0.8 0.0-1.0 mg/dL Aspartate Amino Transferase 20 5-37 U/L Alanine Aminotransferase 17 0-40 U/L Total Protein 7.2 6.5-8.0 g/dL Albumin Level 4.1 3.5-5.0 g/dL Alkaline Phosphatase 52 39-117 U/L Lipid Panel Reviewed date:08/09/2024 03:50:58 PM Interpretation: Performing Lab:[facility], [address] [place] [phone] Notes/Report: Triglycerides 76 <150 mg/dL Desirable Triglyceride: less than 150 mg/dL Borderline High Triglyceride 150-199 mg/dL High Triglyceride: 200-499 mg/dL Very High Triglyceride: greater than or equal to 5OO mg/dL Cholesterol 181 <200 mg/dL Desirable Cholesterol: less than 200 mg/dL Borderline High Cholesterol: 200-239 mg/dL High Cholesterol: greater than 239 mg/dL LDL Cholesterol Calculated 100 <100 mg/dL Desirable LDL: less than 100 mg/dL Near Optimal/Above Optimal LDL: 110-129 mg/dL Borderline High LDL: 130-159 mg/dL High LDL: 160-189 mg/dL Very High LDL: greater than or equal to 190 mg/dL HDL Cholesterol 66 >40 mg/dL Desirable HDL: greater than 40 mg/dL Note: This HDL assay may give artificially low results in patients with liver disease. PSA,Total (Free>4and<10) Reviewed date:08/12/2024 07:16:25 AM Interpretation: Performing Lab:[address] [phone] Notes/Report: PSA,Total (Free>4and<10) 3.17 0.00-4.00 ng/mL A Free PSA was not performed: The percentage of Free PSA can be used to enhance the differentiation of prostate cancer from benign prostatic disease in subjects whose PSA levels are between 4.0 and 10.0 ng/mL. For subjects whose PSA levels are below 4.0 or above 10.0 ng/mL, the risk of prostate cancer is determined on the basis of the PSA alone. Therefore the % Free PSA is recommended only for those subjects whose PSA levels are between 4.0 and 10.0 ng/mL. PSA methodology: Rocha Alinity i Chemiluminescent Microparticle Immunoassay (CMIA) UA ClnCatch+Micro w/rflx Cul t Reviewed date:08/11/2024 05:00:27 PM Interpretation: Performing Lab:[address] [phone] Notes/Report: Urine, Clean Catch Color Urine Yellow Appearance Urine Clear PH 6.0 5.0-9.0 Glucose Urine UA Negative Negative mg/dL Urine Blood Negative Negative Specific [place] - Urine 1.025 1.005-1.025 Urine Protein Trace Neg-Trace mg/dL Urine Ketones Trace Negative mg/dL Nitrite Urine Negative Negative Leukocyte Esterase Urine Negative Negative RBC Urine 0-2 0-2 /HPF WBC Urine 0-5 0-5 /HPF Squamous Epithelial Cell Urine 0-2 0-2 /HPF Bacteria Urine None Seen None Seen Hyaline Casts Urine 0-2 0-2 /LPF Occult Blood, Stool, Guaiac Reviewed date:08/16/2024 01:55:47 PM Interpretation:Negative Performing Lab: Notes/Report: Negative Occult Blood, Stool, Guaiac Neg Blood Urea Nitrogen Reviewed date:10/18/2024 04:26:48 PM Interpretation: Performing Lab:[facility], [address] [place] [phone] Notes/Report: Blood Urea Nitrogen 19 9-16 mg/dL Creatinine Reviewed date:10/18/2024 04:38:26 PM Interpretation: Performing Lab:[facility], [address] [place] [phone] Notes/Report: Creatinine 1.13 0.5-1.4 mg/dL Estimated Glomerular Filt Rate > 60 Chronic Kidney Disease: Estimated GFR < 60 mL/min/1.73m2 Severe Kidney Disease: Estimated GFR < 15 mL/min/1.73m2 REASON FOR REFERRAL No Information MEDICATIONS Medication SIG (Take, Route, Frequency, Duration) Notes Start Date End Date Status Triamcinolone Acetonide 0.5 % 1 application to affected area Externally Twice a day Active Finasteride 5 MG take 1 tablet by tayla th every day Orally Once a day Active Atorvastatin Calcium 20 MG take 1 tablet by mouth every day Orally Once a day Active IMMUNIZATIONS Vaccine Route Administration Date Status Comme nts Covid Vaccine Unknown 04/03/2021 Administered Moderna SARS-COV-2 Moderna Unknown 05/01/2021 [facility]ered [facility] SARS-COV-2 Moderna Unknown 11/05/2021 Administered SARS-COV-2 Moderna Unknown 09/27/2022 Administered [facility] Fluarix Quadrivalent Unknown 12/25/2018 Refused PPSV23 (Pnemovax) Unknown 12/25/2018 Refused Prevnar 13 Unknown 12/25/2018 Refused PPSV23 (Pnemovax) Unknown 06/25/2020 Refused Prevnar 13 Unknown 06/25/2020 Refused TDaP Unknown 01/05/2021 Refused Fluarix Quadrivalent Unknown 01/05/2021 Refused Fluarix Quadrivalent Unknown 02/04/2022 Refused Fluarix Quadrivalent Unknown 09/12/2022 Refused Fluarix Quadrivalent - 150 Unknown 08/09/2024 Refused Influenza High Dose Unknown 08/16/2024 Refused SOCIAL HISTORY Tobacco Use: Social History Observation Description Date Details (start date - stop date) Never Smoker NA - NA Sex Assigned At : Social History Observation Description Sex Assigned At Unknown Tobacco Use/Smoking Question Answer Notes Patient is a nonsmoker Additional Findings: Tobacco Non-User Cu rrent non-smoker, currently using no form of tobacco Alcohol Screen Question Answer Notes Did you have a drink contain ing alcohol in the past year? Yes How often did you have a dri nk containing alcohol in the past year? 4 or more times a week (4 points) How many drinks did you have on a typical day when you were drinking in the past year? 1 or 2 drinks (0 point) How often did you have 6 or more drinks on one occasion in the past year? Never (0 point) Points 4 Interpretation Positive PROBLEMS Problem Type ICD Code Onset Dates Problem Status W/U Status Risk SNOMED Code Notes Problem Hypercholesterolemia (E78.00) Active confirmed 52223060 Problem Prostatism (N40.0) Active confirmed 114 69484 Problem Migraine with aura a nd without status migrainosus, not intractable (G43.109) Active confirmed 7777617 Problem Psoriasis (L40.9) Active confirmed 9014 002 Problem Vitiligo (L80) Active confirmed 2273249 7 Problem Intrinsic eczema (L20.84) Active confirmed 22979776 Problem Ascending aorta dilatation (I77.810) Active confirmed 735431808 Problem Nonrheumatic aortic valve insufficiency (I35.1) Active confirmed 780795581 VITAL SIGNS Blood pressure diastolic 60 mm Hg 11/12/2024 kanu ght is up 3 poiunds since 08-16-24 Height 70.5 in 11/12/2024 weight is up 3 poiunds since 08-16-24 Blood pressure systolic 112 mm Hg 11/12/2024 weig ht is up 3 poiunds since 08-16-24 Weight 184 lbs 11/12/2024 weight is up 3 poiunds since 08-16-24 BMI 26.03 kg/m2 11/12/2024 weight is up 3 poiunds since 08-16-24 Encounters Encounter Location Date Provider Diagnosis Jenaro Brown MD [address] [place], [place] [id number] 08/16/2024 Jenaro Brown Elevated PSA R97.20 ; Annual physical exam Z00.00 ; Elevated serum creatinine R79.89 ; Intrinsic eczema L20.84 ; Ascending aorta dilatation I77.810 ; Nonrheumatic aortic valve insufficiency I35.1 ; Hypercholesterolemia E78.00 ; Colon cancer screening Z12.11 and Depression screening Z13.31 Jenaro Brown MD [address] [place] [id number] 02/05/2024 Jenaro Brown Hypercholesterolemia E78.00 Jenaro Brown MD [address] [place] [id number] 08/09/2024 Jenaro Brown Annual physical exam Z00.00 ; Hypercholesterolemia E78.00 and Prostatism N40.0 Jenaro Brown MD [address] [place] [id number] 11/08/2024 Jenaro Brown MD [address] [place] [id number] 10/18/2024 Jenaro Brown Elevated serum creat inine R79.89 Jenaro Brown MD [address] [place] [id number] 02/12/2024 Jenaro Brown Hypercholesterolemia E78.00 Jenaro Brown MD [address] [place] [id number] 11/12/2024 Jenaro Brown Ascending aorta dila tation I77.810 ; Nonrheumatic aortic valve insufficiency I35.1 ; Prostatism N40.0 and Elevated BUN R79.9 Jenaro Brown MD [address] [place] [id number] 08/16/2024 Jenaro Brown MD [address] [place] [id number] 02/05/2024 Jenaro Brown Hypercholesterolemia E78.00 ASSESSMENTS Encounter Date Diagnosis Assessment Notes Treatment Notes Treatment Clinical Notes 08/16/2024 Annual physical exam (ICD-10 - Z00.00) labs reviewed and discussed with patient 08/16/2024 Elevated PSA (ICD-10 - R97.20) wants to wait and repeat psa, will continue to monitor 02/05/2024 Hypercholesterolemia (ICD-10 - E78.00) 08/09/2024 Annual physical exam (ICD-10 - Z00.00) 08/09/2024 Hypercholesterolemia (ICD-10 - E78.00) 10/18/2024 Elevated serum creat inine (ICD-10 - R79.89) 02/12/2024 Hypercholesterolemia (ICD-10 - E78.00) doing well on meds lft'sstable, will continue current regiment 11/12/2024 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) needs to repeat echo in 2 years/ order printed and put in future folder 11/12/2024 Ascending aorta dila tation (ICD-10 - I77.810) will continue to monitor 02/05/2024 Hypercholesterolemia (ICD-10 - E78.00) 08/16/2024 Elevated serum creat inine (ICD-10 - R79.89) will repeat cr and bun 08/09/2024 Prostatism (ICD-10 - N40.0) 11/12/2024 Prostatism (ICD-10 - N40.0) discussed the rising psa/ need last notes from [facility]/ request will be sent, pending labs 08/16/2024 Intrinsic eczema (IC D-10 - L20.84) controlled with triam 11/12/2024 Elevated BUN (ICD-10 - R79.9) has gotten better with drinking more water, will continue to monitor 08/16/2024 Ascending aorta dila tation (ICD-10 - I77.810) order faxed to [facility] dept, pending diagnostic testing 08/16/2024 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) 08/16/2024 Hypercholesterolemia (ICD-10 - E78.00) stable, at goal, will continue current regiment 08/16/2024 Colon cancer screeni ng (ICD-10 - Z12.11) guaiac negative 08/16/2024 Depression screening (ICD-10 - Z13.31) negative screen PLAN OF TREATMENT Pending Test Test Name Order Date Stress Test 08/12/2022 ECHO 08/16/2024 PSA,Total (Free>4and<10) 11/12/2024 CA echo transthoracic complete 2 CA echo transthoracic complete 2 Future Test Test Name Order Date ECHO 11/12/2026 Next Appt Details Provider Name:Jenaro middleton, 08/15/2025 07:00:00 AM, [address] [facility], [address], [place], [place], [phone], Provider Name:Jenaro prescottr, 08/22/2025 08:30:00 AM, [address], [address], [place], [place], [phone], Insurance Providers Payer Name Payer Address Payer Phone Subscriber Number Group Number Insured Name Patient Relationship to Insured Coverage Start Date Coverage End Date [employer] [facility] [address] [place], [place] [id number] Leo Frank Self - patient is the insured MEDICARE [facility] [address] [place] [address] [id number] Leo Frank Self - patient is the insured MEDICAL (GENERAL) HISTORY Medical History History ICD Code bph surgery 2011 biopsy colonoscopy 2018 due in 5 years, colonos copy 03/31/23 return prn
--- OUTSIDE RECORDS SUMMARY | 2024-11-12 11:53 | XMS_ITS ---
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
--- OUTSIDE RECORDS SUMMARY | 2024-11-12 11:53 | XMS_ITS ---
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 Role Phone Jenaro Brown Primary Care Provider [phone] RESULTS Component Value Reference Range Notes Blood Urea Nitrogen Reviewed date:10/18/2024 04:26:48 PM Interpretation: Performing Lab:[facility], [address] [place] [phone] Notes/Report: Blood Urea Nitrogen 19 9-16 mg/dL Creatinine Reviewed date:10/18/2024 04:38:26 PM Interpretation: Performing Lab:[facility], [address] [place] [phone] Notes/Report: Creatinine 1.13 0.5-1.4 mg/dL Estimated Glomerular Filt Rate > 60 Chronic Kidney Disease: Estimated GFR < 60 mL/min/1.73m2 Severe Kidney Disease: Estimated GFR < 15 mL/min/1.73m2 REASON FOR VISIT BUN, Creatine, PSA Encounters Encounter Location Date Provider Diagnosis Jenaro Brown MD [address] [place] [address] Drive [address] [place] [id number] 10/18/2024 Jenaro Brown Elevated serum creatinine R79.89 ASSESSMENTS Encounter Date Diagnosis Assessment Notes Treatment Notes Treatment Clinical Notes 10/18/2024 Elevated serum creatinine (ICD-10 - R79.89) PLAN OF TREATMENT Next Appt Details Provider Name:Jenaro middleton, 08/15/2025 07:00:00 AM, [address] [place] [address], [address] [place] [address], [phone], Provider Name:Jenaro middleton, 08/22/2025 08:30:00 AM, [address], [address], [place], [phone],
[2024-11-12 12:34] LABS: PSA,Total (Free>4and<10) 1.95 ng/mL (0.00-4.00)
== END 2024-11-12 11:50 | disposition home or self-care (01) ==
LOC: HO.LNP 11:49
PROVIDERS: Visit Provider Internal Medicine
DX: Z12.5 Encounter for screening for malignant neoplasm of prostate (principal); I77.810 Thoracic aortic ectasia; N40.0 Benign prostatic hyperplasia without lower urinary tract symptoms
CPT/HCPCS: 84153

== ENCOUNTER 2025-08-15 07:00 | Outpatient (REF) | payer MEDICARE, SELFPAY ==
[2025-08-15 10:59] LABS: MANUAL DIFF FLAG NO
[2025-08-15 11:47] LABS: Appearance Urine Clear; Glucose Urine UA Negative (Negative); PH 6.0 (5.0-9.0); Specific Gravity - Urine 1.025 (1.005-1.025)
[2025-08-15 11:51] LABS: Hematocrit 43.4 % (42.0-52.0); Hemoglobin 14.6 g/dl (14.0-18.0); Imm Gran Abs Auto 0.02 X10*3/uL (0.00-0.03); Imm Gran Pct Auto 0.3 % (0.0-0.4); Lymphocytes Absolute Auto 2.0 X10*3/uL (1.2-4.9); Mean Corpuscular HGB Conc 33.6 g/dl (31.0-36.0); Mean Corpuscular Hemoglobin 29.7 pg (27.0-33.0); Mean Corpuscular Volume 88.4 fL (80.0-98.0); NRBC Abs Auto 0.000 X10*3/uL (0.0-0.012); NRBC Pct Auto 0.0 /100WBC (0.0-0.2); Platelet Count 182 X10*3/uL (160-400); Red Blood Count 4.91 X10*6/uL (4.60-5.80); White Blood Count 5.7 X10*3/uL (4.8-10.8)
[2025-08-15 12:15] LABS: PSA,Total (Free>4and<10) 2.53 ng/mL (0.00-4.00)
[2025-08-15 12:23] LABS: Alanine Aminotransferase 17 U/L (0-40); Albumin Level 4.2 g/dL (3.5-5.0); Alkaline Phosphatase 51 U/L (39-117); Anion Gap 11 (12-20); Aspartate Amino Transferase 26 U/L (5-37); Blood Urea Nitrogen 20 mg/dL (9-16); Calcium 9.0 mg/dL (8.4-10.2); Carbon Dioxide 25 mmol/L (22-29); Chloride 111 mmol/L (96-108); Cholesterol 175 mg/dL (<200); Estimated Glomerular Filt Rate 52; HDL Cholesterol 60 mg/dL (>40); Potassium 4.6 mmol/L (3.3-5.1); Sodium 142 mmol/L (135-145); Total Protein 7.0 g/dL (6.5-8.0); Triglycerides 91 mg/dL (<150)
== END 2025-08-15 07:01 | disposition home or self-care (01) ==
LOC: HO.LNP 07:00
PROVIDERS: Visit Provider Internal Medicine
DX: Z00.00 Encounter for general adult medical examination without abnormal findings (principal); N40.0 Benign prostatic hyperplasia without lower urinary tract symptoms; E78.00 Pure hypercholesterolemia, unspecified; Z12.5 Encounter for screening for malignant neoplasm of prostate
CPT/HCPCS: 80053; 80061; 81001; 84153; 85025